=== PATIENT | male | born 1990 | race American Indian/Alaskan Native ===

== ENCOUNTER 2018-08-24 18:55 | Emergency (ER) | payer OTHER ==
[2018-08-24 19:30] VITALS: BP 132/73
--- NOTE | 2018-08-24 19:32 | Emergency Department Report ---
Chief Complaint: Extremity Problem,Nontraumatic Stated Complaint: SORE FINGERS Time Seen by Provider: 08/24/18 19:29 - HPI History of Present Illness: This is a 27 y.o. male that reports to ED with pain to right 4th and 5th fingers from heavy lifting since yesterday. - ROS Review of Systems: right 4th and 5th digit pain - Exam Vital Signs: Vital Signs 08/24/18 19:28 Temperature 98.2 F Pulse Rate 75 Respiratory 18 Rate Blood Pressure 132/73 O2 Sat by Pulse 99 Oximetry MSE screening note: Focused history and physical exam performed. Due to findings the following was ordered: XR of right fingers Fast track for further evaluation. ED Disposition for MSE Condition: Stable
--- NOTE | 2018-08-24 20:06 | Emergency Department Report ---
Upper Extremity - HPI Chief Complaint: Extremity Problem,Nontraumatic Stated Complaint: SORE FINGERS Time Seen by Provider: 08/24/18 19:29 Upper Extremity: Right Ring Finger, Right Little Finger Occurred When: Today Mechanism: Hit with Object, Other Severity: moderate Symptoms: Yes Pain with Movement, No Deformity, No Limited Range of Movement, No Numbness, No Weakness, No Swelling, No Bruising/Ecchymosis, No Laceration or Abrasion Other History: Patient states the ease of pain to his right little and index finger. 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 Patient denies any fall injury or trauma to the hands. ED Review of Systems ROS: Stated complaint: SORE FINGERS Other details as noted in HPI Comment: All other systems reviewed and negative ED Past Medical Hx - Past Medical History Previous Medical History?: No - Surgical History Past Surgical History?: No - Social History Smoking Status: Current Every Day Smoker - Medications Home Medications: Home Medications Medication Instructions Recorded Confirmed Last Taken Type Cyclobenzaprine [Flexeril] 10 mg PO QHS PRN #20 tablet 08/24/18 Unknown Rx Naproxen [Naprosyn] 500 mg PO BID #30 tablet 08/24/18 Unknown Rx Upper Extremity Exam - Exam General: Vital signs noted. No distress. Alert and acting appropriately. Head and Torso: No HEENT Abnormality, No Neck Tenderness, No Chest/Lungs Abnormality, No Abdominal Tenderness, No Back Tenderness Shoulder Exam: Yes Normal Range of Motion in Shoulder, No Shoulder Tenderness, No Clavicle Tenderness, No Shoulder Deformity, No AC Joint Tenderness Arm Exam: No Arm/Humerus Tenderness, No Arm Deformity Elbow: No Elbow Tenderness, No Normal Range of Motion in Elbow, No Elbow Deformity Forearm: No Forearm Tenderness, No Forearm Deformity, No Pain with Pronation, No Pain with Supination Wrist: Yes Normal ROM in Wrist, No Wrist Tenderness, No Wrist Deformity, No Snuffbox Tenderness, No Pain with Axial Thumb Compression Hand: Yes Normal ROM in Digit(s), No Hand Tenderness, No Hand Deformity, No Digit Tenderness, No Digit(s) Deformity, No Tendon Dysfunction CMS Exam: No Broken Skin, No Normal Distal Pulses, No Normal Capillary Refill, No Normal Distal Sensation ED Course Vital Signs 08/24/18 19:28 Temperature 98.2 F Pulse Rate 75 Respiratory 18 Rate Blood Pressure 132/73 O2 Sat by Pulse 99 Oximetry ED Medical Decision Making - Radiology Data Radiology results: report reviewed No acute right hand abnormality, no fracture or dislocation noted - Medical Decision Making 27-year-old male presents with arthralgias of the right hand. X-ray shows no acute findings Discussed findings with the patient. Discussed with patient to apply heat therapy 3 times a day. 6. Follow-up with primary care physician vital signs are normal patient has no acute distress Critical care attestation.: If time is entered above; I have spent that time in minutes in the direct care of this critically ill patient, excluding procedure time. ED Disposition Clinical Impression: Arthralgia of hand, right Disposition: [id number] TO HOME OR SELFCARE Is pt being admited?: No Does the pt Need Aspirin: No Condition: Stable Instructions: Arthralgia (ED) Additional Instructions: Make sure to follow up with the primary care physician as discussed. Take all your medications as you've been prescribed. If you have any worsening symptoms or develop new symptoms please return to ED immediately. Prescriptions: Cyclobenzaprine [Flexeril] 10 mg PO QHS PRN #20 tablet PRN Reason: Muscle Spasm Naproxen [Naprosyn] 500 mg PO BID #30 tablet Referrals: [facility] [Outside] - 3-5 Days Forms: Accompanied Note, Work/School Release Form(ED) Time of Disposition: 20:39
--- NOTE | 2018-08-24 20:30 | XRay Report ---
PROCEDURE: XR HAND 3+V RT TECHNIQUE: 3 views right hand HISTORY: 4th and 5th pain COMPARISONS: None FINDINGS: Normal bony mineralization. No fracture or dislocation. No radiopaque foreign body or soft tissue gas. No soft tissue swelling. IMPRESSION: No acute abnormality right hand, specifically the fourth and fifth digits.. This document is electronically signed by Oxana Vang MD., August 24 2018 08:27:42 PM ET
== END 2018-08-24 20:50 | disposition home or self-care (01) ==
LOC: ED 18:55
DX: M79.644 Pain in right finger(s) (principal); M79.641 Pain in right hand; F17.200 Nicotine dependence, unspecified, uncomplicated